=== PATIENT | male | born 1960 | race Caucasian/White ===

== ENCOUNTER 2023-07-29 10:53 | Emergency (ER) | payer BC, SELFPAY ==
[2023-07-29 11:01] VITALS: BP 150/85
[2023-07-29 11:12] LABS: % Basophils 0.9 % (0-2); % Eosinophils 0.5 % (0-6); % Immature Granulocytes 0.2 % (0-0.5); % Lymphocytes 20.9 % (20.5-51.1); % Monocytes 8.9 % (1.7-9.3); % Neutrophils 68.6 % (42.2-75.2); Absolute Basophils 0.1 10^3/uL (0-0.2); Absolute Lymphocytes 1.2 10^3/uL (1.2-3.4); Absolute Monocytes 0.5 10^3/uL (0.1-0.6); Absolute Neutrophils 3.9 10^3/uL (1.4-6.5); Hematocrit 41.5 % (39.0-52.0); Hemoglobin 14.9 g/dL (13.0-18.0); Mean Corp Hgb Conc. 35.9 g/dL (33.0-37.0); Mean Corpuscular Hgb 32.7 pg (27.0-31.0); Nucleated Red Blood Cells % 0 % (-); Platelet Count 222 10^3/uL (130-400); Red Blood Cell Count 4.56 10^6/uL (4.70-6.10); Red Cell Dist. Width 11.9 % (11.5-14.5); White Blood Cell Count 5.7 10^3/uL (4.8-10.8)
[2023-07-29 11:24] LABS: ALT (SGPT) 26 U/L (0-50); AST (SGOT) 39 U/L (17-59); Albumin 4.2 g/dl (3.5-5.0); Alkaline Phosphatase 58 U/L (38-126); Blood Urea Nitrogen 16 mg/dl (9-20); Calcium 9.6 mg/dl (8.4-10.2); Carbon Dioxide 32 mmol/L (22-30); Chloride 102 mmol/L (98-107); Glucose 100 mg/dl (70-99); Potassium 4.4 mmol/L (3.5-5.1); Sodium 137 mmol/L (135-145); Total Protein 7.2 g/dl (6.3-8.2); eGFR > 60.00
[2023-07-29 11:46] VITALS: BMI 24.9
[2023-07-29 11:48] VITALS: BP 124/76
[2023-07-29 12:00] VITALS: BP 123/70
--- NOTE | 2023-07-29 12:30 | ED.GENMED ---
History of Present Illness
General
Chief Complaint: Headache
Source: patient
Time Seen by Provider: 07/29/23 12:05
Nursing documentation reviewed up to this point in time: agreed with
Travel History
Have you had any contact with someone who has COVID-19?: No
Do you have any symptoms of coronavirus? Fever > 100 degrees, chills, cough, shortness of breath, sore throat, loss of taste or smell, muscle aches, or headache?: No
History of Present Illness
History of Present Illness:
Patient is a 63-year-old male who presents to the ER for evaluation. Patient started with a headache 3-4 weeks ago. He reports he woke up in the middle of the night with night sweats and had a headache. Patient reports the headache has been
persistent since. He reports the headache is not debilitating but it is present. He is able to sleep with it. After 2 weeks he did feel some tingling and numbness in his hands. Patient reports about 10 days ago however he started develop chills
clammy skin and sweats continued. He has checked his temperature and has not had a fever. He denies any runny nose he does feel that his glands are mildly swollen in his neck. He denies any weight loss. He denies any light sensitivity. He
denies any difficulty walking.
Patient reports he is a runner and 2 weeks into the headache he was running but for the past week because of the chills he has not been running.
He initially thought he may have had COVID and though he did not test for that he did take ivermectin when symptoms of headache for started.
Past History
Past History
ED Past Medical History: Hypercholesterolemia and Other (Sciatica, Hepatitis A)
ED Past Surgical History: Other (Rt Upper back abscess I&D)
Patient has exhibited threatening behavior?: No
Social History
Tobacco: Non-smoker
Alcohol: Occasional
Drug: None
Personal:
Living: with family
Employment: Employed
Family History
Family History: Cancer (Mom - Breast cancer at age 53, Prostrate cancer in the men of the family)
Review of Systems
Review of Systems
Allergies reviewed?: Yes
All Other Systems: ROS reviewed and negative except as documented in HPI and ROS
Constitutional: Reports night sweats; Denies chills
EENT: Reports no symptoms
Respiratory: Reports no symptoms
Cardiac: Reports no symptoms
ABD/GI: Reports no symptoms; Denies abdominal pain, nausea or vomiting
Musculoskeletal: Reports no symptoms; Denies neck pain
Skin: Reports other (skin feels clammy )
Neurological: Reports headache; Denies dizzy, weakness or numbness
Endocrine: Reports no symptoms
Hematologic/Lymphatic: Reports no symptoms
Psychiatric: Reports no symptoms
Phy Exam
General Physical Exam
General Presentation: no apparent distress
General age: appears stated age
General Skin: warm and dry
General Habitus: normal
General Mental: alert
General Hydration: appears well hydrated
ENT Exam
ENT Exam: EOMI and neck supple
Eye Exam
Eye Exam: PERRL and EOMI
Eye Exam General: PERRL: bilateral and EOM intact: bilateral
Pupil Exam: Bilateral: round and reactive
Cardiovascular Exam
Cardiovascular Exam: regular rate/rhythm, no murmur and normal peripheral pulses
Pulmonary Exam
Pulmonary Exam: lungs clear and no respiratory distress
Neurological Exam
Neurological Exam: alert, oriented x3, no motor deficits, no sensory deficits, speech normal and other (steady gait )
[place] Coma Scale
Eye Opening: Spontaneous
Verbal Response: Oriented
Motor Response: Obeys Commands
GCS Total Score: 15
Musculoskeletal Exam
Musculoskeletal Exam: full ROM and other (no tenderness to to b/l temporal region )
Course
Orders/Labs/Results
Orders:
Orders
07/29/23 11:05
CBC/With Diff [Complete Blood Count/With Diff] Urgent
CMP [Comprehensive Metabolic Panel] Urgent
TSH Reflex To Free T4 Urgent
Comment: ADD ON
07/29/23 12:30
Add On- LAB Urgent
Tests Added?: tsh w/ reflexive t4
07/29/23 12:35
COVID-19 Antigen Urgent
Source: Nasal Swab
Influenza A+B Rapid Molecular Urgent
BROOKS Source: Nasal Swab
Specimen Description:
07/29/23 14:17
CT Head W/o Iv Contrast Urgent
Comment:
Reason For Exam: headache
Abnormal Lab Results
07/29/23
11:05
RBC 4.56 L 10^6/uL
(4.70-6.10)
MCH 32.7 H pg
(27.0-31.0)
Carbon Dioxide 32 H mmol/L
(22-30)
Glucose 100 H mg/dl
(70-99)
07/29/23 11:05
07/29/23 11:05
Vital Signs
Initial and Last Documented VS:
Initial Vital Signs
Temp Pulse Resp Pulse Ox
99.8 F 67 16 98
07/29/23 10:58 07/29/23 10:58 07/29/23 10:58 07/29/23 10:58
Last Documented Vital Signs
Temp Pulse Resp BP Pulse Ox
99.8 F 58 12 114/71 98
07/29/23 10:58 07/29/23 12:15 07/29/23 12:15 07/29/23 13:00 07/29/23 14:15
MDM/Problems Addressed
Differential Diagnosis Includes:
not limited to: headache , viral syndrome, influenza, covid
MDM/Problems Addressed:
Patient is 63-year male who presented to the ER complaining of intermittent headaches for the past 3 to 4 weeks but recent chills and felt clammy. Patient has no neurological deficits on exam low-grade temp of 99.8. He is nontoxic-appearing with a
normal white count stable hemoglobin and chemistries unremarkable. Patient was found to be positive for flu B. Pt reports initially during his symptoms he thought he had COVID though did not test and took ivermectin that he had a line.
He reports he does' not trust COVID or flu tests,' and therefore does request CAT scan to further evaluate headache. Patient's CAT scan is negative.
Patient is nontoxicand again has stable vital signs. He has a normal neurological exam no meningismus normal renal function. Will DC with supportive care for influenza.
Regarding headaches I did have patient follow-up with family doctor as well as neurology since headaches have been lasting for the past month.
*Radiology
Radiology exam reviewed: radiology read reviewed
*Pulse Oximetry
Patient hypoxic: no
*Critical Care Note
Total Time (30-74mins, 75-104mins- exclusive of procedures): Not Applicable
ED Attending Note
-
Portions of this chart may have been created with voice recognition software.� Occasional wrong word or��sound alike� substitutions may have occurred due to the inherent limitations of voice recognition software.
Discharge Plan
Departure
Patient Disposition: Home (Routine Discharge)
Date of Disposition: 07/29/23
Time of Disposition: 15:21
Patient with high blood pressure during this ER visit?: Yes
Covid-19: Not Applicable
Discharge Problem:
Influenza B, Headache
Instructions: Flu, Adult (DC), BLOOD PRESSURE
Prescriptions:
No Action
aspirin 81 MG tablet,delayed release (DR/EC)
81 mg PO DAILY
ibuprofen 200 MG tablet
200 mg PO Q4HPRN PRN (Reason: pain/BLANK)
docosahexaenoic acid-epa 1 CAP capsule
1 cap PO DAILY
plant stanol zoya [Cholest Off] 450 MG tablet
450 mg PO DAILY
multivitamin with folic acid [Tab-A-Kim] 1 TABLET tablet
1 tab PO DAILY
turmeric root extract 500 MG capsule
500 mg PO DAILY
Referrals:
Tonny Raphael DO [Family Provider] -
Ofelia Abraham DO [Active] -
Activity Restrictions/Additional Instructions:
Increase fluids , stay well-hydrated. You may alternate between Tylenol and ibuprofen for fever chills body aches. Follow-up with your family doctor in next several days for reevaluation .
return if any worsening of symptoms. As discussed your CAT scan was negative your labs are unremarkable. You are also given information for neurology follow-up please call them tomorrow to make an appointment for further evaluation of headaches
Return if any worsening of symptoms
Interventions
Interventions:
*Risk Screen - Suicide Last Done: 07/29/23 10:58
*General Assessment Last Done: 07/29/23 10:58
*Neglect/Abuse Screening Last Done: 07/29/23 10:58
ED- Fall Risk Assessment Last Done: 07/29/23 11:46
*ED COVID-19 Vaccine History Last Done: 07/29/23 11:46
ED- Neurological Assessment Last Done: 07/29/23 11:46
[2023-07-29 13:00] VITALS: BP 114/71
[2023-07-29 13:02] LABS: COVID-19 Antigen Negative (Negative)
[2023-07-29 14:28] LABS: TSH Reflex To Free T4 3.54 uIU/ml (0.47-4.68)
== END 2023-07-29 15:49 | disposition home or self-care (01) ==
LOC: EMR 10:53
PROVIDERS: Nurse Practitioner; EMERGENCY PHYSICIAN Emergency Medicine; FAMILY PHYSICIAN Surgery
DX: J10.1 Influenza due to other identified influenza virus with other respiratory manifestations (principal); R51.9 Headache, unspecified; R61 Generalized hyperhidrosis; R20.0 Anesthesia of skin; R20.2 Paresthesia of skin; Z11.52 Encounter for screening for COVID-19; R03.0 Elevated blood-pressure reading, without diagnosis of hypertension; E78.00 Pure hypercholesterolemia, unspecified; M54.30 Sciatica, unspecified side; G47.30 Sleep apnea, unspecified; Z79.82 Long term (current) use of aspirin
CPT/HCPCS: 99284; 70450; 80053; 84443; 85025; 87502; 87811